=== PATIENT | female | born 1995 | race Caucasian/White ===

== ENCOUNTER 2017-03-13 00:29 | Inpatient (IN) | payer BC, OTHER ==
[~2017-03-13] VITALS: Ht 165.1 cm; Wt 104.3 kg
[2017-03-13] MEDS ORDERED: LORAZEPAM 2 MG/1 ML VIAL IM PRN (20:30)
[2017-03-13] MEDS ORDERED: LOPERAMIDE HCL 2 MG CAPSULE PO PRN ×2 (20:30)
[2017-03-13] MEDS ORDERED: MAGNESIUM HYDROXIDE 30 ML LIQUID UDC PO PRN (20:30)
[2017-03-13] MEDS ORDERED: CLONIDINE HCL 0.1 MG TABLET PO PRN (20:30)
[2017-03-13] MEDS ORDERED: diphenhydrAMINE 50 MG CAPSULE PO PRN (20:30)
[2017-03-13] MEDS ORDERED: MIRALAX 17 GM POWD.PACK PO PRN (20:30)
[2017-03-13] MEDS ORDERED: THIAMINE HCL 200 MG/2 ML VIAL IM ONE (20:30)
[2017-03-13] MEDS ORDERED: MAG HYDROX/AL HYDROX/SIMETH 30 ML LIQUID UDC PO PRN (20:30)
[2017-03-13] MEDS ORDERED: LORAZEPAM 1 MG TABLET PO PRN ×2 (20:30)
[2017-03-13] MEDS ORDERED: ACETAMINOPHEN 325 MG TABLET PO PRN (20:30)
[2017-03-13] MEDS ORDERED: ONDANSETRON 4 MG/2 ML VIAL IM PRN (20:30)
[2017-03-13 21:00] VITALS: BP 142/97
--- NOTE | 2017-03-13 21:00 | NUR ---
Preadmission note Patient is being admitted to [facility] for benzo detox, and K2 dependence. Patient is alert and oriented x 4. Appears anxious with restlessness, and hyperverbal speech pattern. Patient is nauseous and has vomited clear fluid x 2 during admission process. VS BP 142/97, P 112, Spo2 97% on RA, T 97.0 Patient ambulating with steady gait. Reports K2 use daily for 7 years and periodic intermittent xanax use approximately 3 times weekly. Patient last used today before getting on plane approximately 0900 this am. 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
[2017-03-13 21:14] VITALS: BP 142/90
--- NOTE | 2017-03-13 21:14 | NUR ---
Admission Note Patient is a 21 year old female admitted to [facility] on 03-13-17 at 2114 for K2 dependence and benzo detox. Patient is alert and oriented x 4. she is verbally responsive. She is able to make needs known. Patient has seasonal allergies. She is a full code and on a regular diet. Patient reports history of withdrawal seizures. Patient has family history of ETOH and substance use. Patient reports longest period of sobriety was for 6 months approximately 3 years ago. She had one past detox/rehabb 2 years ago at [facility] in [place]. Patient reports past medical history of anxiety, depression, asthma, vasculitis/dermatitis, pilondial cyst removal one month ago. Patient with multiple scars on lower and upper extremities. no open areas. She is 5'5" and 230 Lbs. Patient with nausea and vomiting during admission and preadmission. Provided urine for Hcg with negative result, and drug screen. Lab work drawn. Patient reports having a PCP in [place] Dr [place]. Patient reports taking Singulair 10 mg PO daily at home, and zofran 4 mg SL as needed. Oriented to unit, body search completed, VS BP 142/90, P 96, R 18, SPO2 97% on RA, T 98.6. CIWA 14. Patient on fall and seizure precautions, Safety measures in place, bed locked and in lowest position, 2 padded siderails up, call light within reach. Will continue to monitor. Substance abuse history 1. K-2 synthetic marijuana 4-10 gm daily inhalation. Using for 7 years. last use 03-13-17 at approximately 9 am 2. Xanax 1 mg approximately 3 times weekly Using for 7 years. last use 03-11-17 1 mg. (patient reports taking 1mg of ativan received from someone else prior to getting on plane today) 3. Cigarettes approximately 1ppd. last 7 years. Addendum: 03/14/17 at 0000 by ALLISON SARAVIA RN Patient also reports allergy to imitrex
[2017-03-13 21:25] LABS: BASOPHILS # (AUTO) 0.1 K/uL (0.0-8.0); BASOPHILS % (AUTO) 0.9 % (0.0-2.0); EOSINOPHILS # (AUTO) 0.2 K/uL (0.0-0.7); EOSINOPHILS % (AUTO) 1.9 % (0.0-7.0); HEMATOCRIT 43.5 % (37-47); HEMOGLOBIN 14.5 G/DL (12.0-16.0); LYMPHOCYTES # (AUTO) 2.8 K/UL (0.8-4.8); LYMPHOCYTES % (AUTO) 27.1 % (20.5-51.5); MEAN CORPUSCULAR HEMOGLOBIN 30.7 UUG (27.0-31.0); MEAN CORPUSCULAR HGB CONC 33 g/dL (32.0-37.0); MEAN CORPUSCULAR VOLUME 92.2 FL (81.0-99.0); MONOCYTES # (AUTO) 0.9 K/UL (0.1-1.30); NEUTROPHILS # (AUTO) 6.4 K/UL (1.8-8.9); NEUTROPHILS % (AUTO) 61.1 % (38.5-71.5); PLATELET COUNT (AUTO) 302 K/UL (150-450); RED BLOOD CELL COUNT(AUTO) 4.72 MIL/UL (4.2-5.4); WHITE BLOOD COUNT (AUTO) 10.4 K/UL (4.0-11.2)
[2017-03-13 21:39] LABS: ALANINE AMINOTRANSFERASE 22 U/L (14-59); ALKALINE PHOSPHATASE 96 U/L (50-136); ASPARTATE AMINOTRANSFERASE 12 U/L (15-37); BILIRUBIN,TOTAL 0.5 mg/dL (0.2-1.0); CARBON DIOXIDE 22 mmol/L (21-32); CHLORIDE 107 mmol/L (98-107); CREATININE 0.8 mg/dL (0.6-1.3); ETHANOL < 3 MG/DL (0-0); GLUCOSE 127 mg/dL (74-106); MAGNESIUM 1.8 mg/dL (1.8-2.4); POTASSIUM 3.6 mmol/L (3.5-5.1); UREA NITROGEN, BLOOD 12 mg/dL (7-18)
[2017-03-13 21:40] LABS: *URINE HCG, QUAL NEGATIVE (NEGATIVE)
[2017-03-13 21:52] LABS: *AMPHETAMINE, URINE NEGATIVE (NEGATIVE); *BARBITURATE, URINE NEGATIVE (NEGATIVE); *CANNABINOID, URINE NEGATIVE (NEGATIVE); *COCCAINE, URINE NEGATIVE (NEGATIVE); *OPIATE, URINE NEGATIVE (NEGATIVE); *PHENCYCLIDINE SCREEN,URINE NEGATIVE (NEGATIVE)
[2017-03-13] MEDS: ONDANSETRON ODT 4 MG TAB.RAPDIS SL PRN (22:12)
--- NOTE | 2017-03-13 22:12 | NUR ---
PRN medication Patient with nausea and vomiting x 5 since being in admission room at 1999. PRN Zofran 4mg SL given at 2211. Effect Pending.
[2017-03-13] MEDS ORDERED: ONDANSETRON ODT 4 MG TAB.RAPDIS ONE (22:20)
[2017-03-13] MEDS ORDERED: THIAMINE HCL 200 MG/2 ML VIAL ONE (22:20)
[2017-03-13] MEDS ORDERED: NICOTINE POLACRILEX 4 MG GUM-PK OF TEN BC PRN (22:45)
[2017-03-13] MEDS ORDERED: NICOTINE 14 MG/24HR PATCH TD PRN (22:45)
[2017-03-13] MEDS ORDERED: IV NS 1000 ML 1,000 ML IV PRN (22:45)
[2017-03-13] MEDS ORDERED: LORAZEPAM 2 MG/1 ML VIAL IV ONE (23:00)
--- NOTE | 2017-03-13 23:12 | NUR ---
Reassessment of Patient Patient reassessed one hour after Zofran 4mg SL administered for N/V. Patient with no further N/V. Zofran noted to have good effect.
[2017-03-13] MEDS ORDERED: MONT10TA22 PO (23:55)
[2017-03-13] MEDS ORDERED: ALPR1TAB7 PO (23:57)
[2017-03-13] MEDS ORDERED: ONDA4TAB8 SL (23:57)
[2017-03-14] VITALS: BP 136/86
[2017-03-14] MEDS ORDERED: LORAZEPAM 2 MG/1 ML VIAL ONE (00:29)
--- NOTE | 2017-03-14 00:30 | NUR ---
IV placement/one time dose IV ativan administration 22 g IV placed in right forearm. Flushes easily, good blood return. No reports of pain in site. Ativan 2mg IV push administered at 0044 for anxiety/agitation/induction of sleep/ CIWA 14. Effect pending Sodium Chloride 0.9% started at 0044, running at 125 ml/hr.
--- NOTE | 2017-03-14 01:39 | NUR ---
Reassessment of patient Patient reassessed one hour after IV Ativan 2mg given as one time dose. Patient resting comfortably in bed with eyes closed. BP 110/60, P 74, R 16, SPO2 98% on RA Ativan noted o have good effect
[2017-03-14 04:00] VITALS: BP 112/71
--- NOTE | 2017-03-14 06:57 | NUR ---
End of Shift Patient is a 21 year old female admitted to [facility] on 03-13-17 at 2114 for K2 dependence and benzo detox. Patient is alert and oriented x 4. Patient has allergy to pollen and Imitrex. She is a full code and on a regular diet. Patient reports history of withdrawal seizures. Patient reports past medical history of anxiety, depression, asthma, vasculitis /dermatitis, pilondial cyst removal one month ago. Patient with nausea and vomiting during admission and preadmission. Pt received PRN zofran 4mg SL with good effect. IV placement completed to right forearm at 0030. Patient was started on IV fluids at 0044. She received a one-time dose of Ativan 2 mg IV push at 0044. With good effect. Patient reports substance abuse history as follows: K-2 synthetic marijuana 4-10 gm daily inhalation. Using for 7 years. last use 03-13-17 at approximately 9 am Xanax 1 mg approximately 3 times weekly Using for 7 years. last use 03-11-17 1 mg. Cigarettes approximately 1ppd. last 7 years. VS at 2100 BP 142/97, P 112, SPO2 97% ON RA, T 97.0, R 16. VS AT 2114 BP 142/90, P 96, R 18, SPO2 97% on RA, T 98.6. CIWA 14. VS AT 0000 BP 136/86, P 84, R 16, SPO2 98% ON RA, T 98.6. CIWA 14. VS AT 0400 BP 112/71, P 62, R 16, SPO2 98% ON RA. CIWA DEFERRED. Intake 547 ml output 2 voids slept total of 7 hours. Patient on fall and seizure precautions, Safety measures in place, bed locked and in lowest position, 2 padded side-rails up, call light within reach. Will continue to monitor.
--- NOTE | 2017-03-14 07:50 | NUR ---
START OF SHIFT NOTE Received report from night nurse, 21 year old female admitted for K2 and benzo dependence. Patient has PMH of anxiety, depression, asthma, vasculitis /dermatitis, pilonidal cyst removal one month ago. Per endorsement Pt has IV site on RFA 22G Sodium Chloride 0.9% started at 0044, running at 125 ml/hr. Per endorsement pt received ID medications which was effective, pt slept for 5 hours. Patient received awake, alert and oriented x4, Educated patient regarding plan of care for the day and medication regimen with good verbal understanding. Safety measures in place. call light with in reach, will continue to monitor.
[2017-03-14 08:00] VITALS: BP 131/88
[2017-03-14] MEDS: MULTIVITAMINS,THERAPEUTIC TABLET PO SCH (08:25)
[2017-03-14] MEDS: ONDANSETRON ODT 4 MG TAB.RAPDIS SL PRN ×2 (08:26→18:32)
--- NOTE | 2017-03-14 08:26 | NUR ---
PRN ZOFRAN Pt c/o of nausea and x1 vomit, PRN Zofran 4 mg SL administered as ordered. Will cont to monitor and reassess.
[2017-03-14] MEDS ORDERED: FOLIC ACID 1 MG TABLET PO SCH (09:00)
[2017-03-14] MEDS ORDERED: TUBERCULIN,PURIF.PROT.DERIV. 5 TU/0.1 ML TEST ID ONE (09:00)
[2017-03-14] MEDS ORDERED: THIAMINE HCL 100 MG TABLET PO SCH (09:00)
[2017-03-14] MEDS ORDERED: PATIENT MAY USE OWN MED- MD OK PO SCH (09:00)
--- NOTE | 2017-03-14 09:06 | NUR ---
ZOFRAN REASSESSMENT Per pt Zofran was effective in improving nausea and vomiting.
--- NOTE | 2017-03-14 10:20 | NUR ---
IV DISCONTINUED Pt had saline lock on RFA was discontinued as ordered. IV site clean no s/s of bleeding no swelling noted. Pt is tolerating Po fluids and food well.
--- NOTE | 2017-03-14 10:59 | NUR ---
PRN IM ZOFRAN Pt was c/o of nausea and x1 emesis, Pt was given IM Zofran 2ml on left gluteal as ordered. Will cont to monitor and reassess.
--- NOTE | 2017-03-14 11:11 | NUR ---
PRN ATIVAN Pt was c/ of anxiety agitation, sweats, light headed, nausea, CIWA score noted 9. Administered PRN Ativan 1mg Po as ordered. Will cont to monitor and reassess.
--- NOTE | 2017-03-14 11:29 | NUR ---
PRN ZOFRAN REASSESSMENT Per pt Zofran IM was effective nausea and vomiting subside.
[2017-03-14 12:00] VITALS: BP 136/90
--- NOTE | 2017-03-14 12:11 | NUR ---
ATIVAN REASSESSMENT Per pt Ativan 1 mg was effective in alleviating withdrawal symptoms, CIWA score noted-4.
[2017-03-14] MEDS ORDERED: LORAZEPAM 1 MG TABLET PO ONE (13:00)
[2017-03-14] MEDS: GABAPENTIN 300 MG CAPSULE PO SCH ×2 (14:02→20:55)
[2017-03-14 16:00] VITALS: BP 135/93
--- NOTE | 2017-03-14 16:55 | NUR ---
Therapist prompted client to come into group today. Client agreed to attend group.
[2017-03-14] MEDS: MONTELUKAST SODIUM 10 MG TABLET PO SCH (17:39)
[2017-03-14] MEDS: IBUPROFEN 400 MG TABLET PO PRN (18:31)
--- NOTE | 2017-03-14 18:32 | NUR ---
PRN MOTRIN/CLONIDINE/ZOFRAN Patient was downstairs in cafeteria suddenly start c/o of nausea no emesis, general body aches 5/10, Patient was assisted back to her room by POWER TOOL REPAIR TECHNICIAN via wheel chair, Vital signs checked noted her blood pressure 142/92, HR-105. Patient was given PRN Motrin 400mg Po, Clonidine0.1mg Po, Zofran 4mg SL as ordered. Will cont to monitor and reassess.
--- NOTE | 2017-03-14 19:17 | NUR ---
END OF SHIFT NOTE Patient is alert oriented x4. 21 year old female admitted for K2,Benzo dependence. Patient has PMH of anxiety, depression, asthma, vasculitis /dermatitis, pilonidal cyst removal one month ago. Patient IV was removed during shift, Patient was given x3 PRN Zofran effective pt is resting in her room stated Zofran was effective nausea improved, and Ativan x1, noted to be effective. Vital signs remained WNL. Patient remained compliant with treatment plan and medication regime. Medications were effective in reducing withdrawal symptoms. All safety measures in place, Call light within reach. Patient endorsed to night nurse in stable condition.
--- NOTE | 2017-03-14 19:31 | NUR ---
START OF SHIFT NOTE RECEIVED REPORT FROM DAY SHIFT NURSE. PATIENT IS A 21 YEAR OLD MALE ADMITTED FOR BENZO/MARIJUANA DEPENDENCE. PATIENT IS NOT ON TAPER, UNDER OBSERVATION. PATIENT IS ALLERGIC TO IMITREX AND POLLEN. PATIENT WITH HISTORY OF W/D SEIZURES . PATIENT WAS GIVEN PRN ZOFRAN PO , ZOFRAN IM, CLONIDINE, MOTRIN AND ONE TIME ATIVAN. LAST CIWA 4. RECEIVED PATIENT IN HER ROOM, RESTING. PATIENT STATES MOTRIN AND CLONIDINE HELPFUL, DENIES ANY PAIN AT THIS TIME. PATIENT STATES SHE WANTS TO GO TO SLEEP BECAUSE SHE'S TIRED. BLOOD PRESSURE 127/74 P-88.ON FALL/SEIZURE PRECAUTION. SAFETY MEASURES IN PLACE. CALL LIGHT IN REACH. WILL CONTINUE TO MONITOR.
[2017-03-14 20:00] VITALS: BP 94/50
--- NOTE | 2017-03-15 | NUR ---
CIWA DEFERRED PATIENT SLEEPING. CIWA DEFERRED. VS REFUSED. RESPIRATION EVEN AND UNLABORED. SAFETY MEASURES IN PLACE. CALL LIGHT IN REACH. WILL CONTINUE TO MONITOR
--- NOTE | 2017-03-15 04:00 | NUR ---
CIWA DEFERRED PATIENT SLEEPING. CIWA DEFERRED. VS REFUSED. RESPIRATION EVEN AND UNLABORED. SAFETY MEASURES IN PLACE. CALL LIGHT IN REACH. WILL CONTINUE TO MONITOR
--- NOTE | 2017-03-15 07:07 | NUR ---
END OF SHIFT NOTE PATIENT IS A 21 YEAR OLD MALE ADMITTED FOR BENZO/MARIJUANA DEPENDENCE. PATIENT IS NOT ON TAPER, UNDER OBSERVATION. PATIENT IS ALLERGIC TO IMITREX AND POLLEN. PATIENT WITH HISTORY OF W/D SEIZURES . PATIENT IN HER ROOM MOST OF THE SHIFT. PATIENT DID NOT REQUIRE ANY PRN MEDICATION. PATIENT COMPLIANT WITH MEDICATION. ON FALL/SEIZURE PRECAUTION . SAFETY MEASURES IN PLACE. CALL LIGHT IN REACH. WILL CONTINUE TO MONITOR. SLEPT 10 HOURS. FLUID INTAKE 650 ML. VOIDED X 1. NO BM. LAST CIWA 3.
--- NOTE | 2017-03-15 07:55 | NUR ---
START OF SHIFT NOTE Received report from night nurse, 21 year old female admitted for K2 and benzo dependence. Patient has PMH of anxiety, depression, asthma, vasculitis /dermatitis, pilonidal cyst removal one month ago. Per endorsement Pt did not received any PRN medication, pt slept for 10 hours,Last CIWA was 3. Patient received awake, alert and oriented x4, Educated patient regarding plan of care for the day and medication regimen with good verbal understanding. Safety measures in place. call light with in reach, will continue to monitor.
[2017-03-15 08:00] VITALS: BP 113/65
--- NOTE | 2017-03-15 08:23 | NUR ---
YINA BOCANEGRA REASSESSMENT Per pt Yoana SHAH was effective nausea subside. Addendum: 03/15/17 at 1233 by SHRUTHI VAZQUEZ LVN error correct time for reassessment was 922.
[2017-03-15] MEDS: GABAPENTIN 300 MG CAPSULE PO SCH (08:53)
[2017-03-15] MEDS: MULTIVITAMINS,THERAPEUTIC TABLET PO SCH (08:53)
[2017-03-15] MEDS: ONDANSETRON ODT 4 MG TAB.RAPDIS SL PRN (08:53)
--- NOTE | 2017-03-15 08:53 | NUR ---
PRN ZOFRAN Pt c/o of nausea no emesis present, PRN Zofran 4 mg SL administered as ordered. Will cont to monitor and reassess.
[2017-03-15 11:07] LABS: HEPATITIS B SURFACE AG Negative (Negative)
[2017-03-15 12:00] VITALS: BP 116/71
[2017-03-15] MEDS ORDERED: METHOCARBAMOL 750 MG TABLET PO PRN (12:30)
--- NOTE | 2017-03-15 12:40 | NUR ---
PRN ROBAXIN/MIRALAX Patient was c/o of muscle aches and constipation, Patient was given PRN Robaxin 750 mg Po 1 tab, Miralax 1 pack as ordered. Will cont to monitor and reassess.
--- NOTE | 2017-03-15 13:40 | NUR ---
MIRALAX/ROBAXIN REASSESSMENT Per pt medications were effective in alleviating muscle cramps and constipation.
[2017-03-15] MEDS: DICYCLOMINE HCL 20 MG TABLET PO SCH ×2 (14:36→21:14)
[2017-03-15] MEDS: GABAPENTIN 400 MG CAPSULE PO SCH ×2 (14:36→21:13)
[2017-03-15] MEDS: DOCUSATE SODIUM 250 MG CAPSULE PO SCH (14:38)
[2017-03-15 16:00] VITALS: BP 124/67
[2017-03-15] MEDS: MONTELUKAST SODIUM 10 MG TABLET PO SCH (17:22)
--- NOTE | 2017-03-15 19:10 | NUR ---
END OF SHIFT NOTE Patient is alert oriented x4. 21 year old female admitted for K2,Benzo dependence. Patient has PMH of anxiety, depression, asthma, vasculitis /dermatitis, pilonidal cyst removal one month ago. Patient was given x1 PRN Zofran, Robaxin,Miralax noted to be effective. Patient refused her scheduled Colace per Patient Miralax was effective and had 3 BM. Vital signs remained WNL. Patient remained compliant with treatment plan and medication regime. Medications were effective in reducing withdrawal symptoms. Last CIWA score noted 3, at 1600. All safety measures in place, Call light within reach. Patient endorsed to night nurse in stable condition.
[2017-03-15 20:00] VITALS: BP 150/99
--- NOTE | 2017-03-15 20:00 | NUR ---
START OF SHIFT NOTE RECEIVED REPORT FROM DAY SHIFT NURSE. PATIENT IS A 21 YEAR OLD FEMALE ADMITTED FOR BENZO AND K-2 DEPENDENCE. PATIENT IS ALLERGIC TO IMITREX AND POLLEN. PATIENT REPORTS HISTORY OF W/D SEIZURES. PATIENT IS NOT ON TAPER, SHES UNDER OBSERVATION. PRN MEDICATION AVAILABLE. PATIENT WAS GIVEN PRN MIRALAX AND ZOFRAN X 1. PATIENT HAD X 3 BM. REFUSED ROUTINE COLACE. PATIENT LAST CIWA 3. RECEIVED PATIENT ALERT AND ORIENTED X 4. RESPIRATION EVEN AND UNLABORED. PATIENT ANXIOUS , FIDGETY, RESTLESS AND AGITATED. RELAXATION TECHNIQUE PROVIDED .ON FALL/SEIZURE PRECAUTION. SAFETY MEASURES IN PLACE. CALL LIGHT IN REACH. WILL CONTINUE TO MONITOR
[2017-03-15] MEDS: IBUPROFEN 400 MG TABLET PO PRN (21:13)
--- NOTE | 2017-03-15 21:13 | NUR ---
PRN MOTRIN ADMINISTRATION PATIENT C/O GENERALIZED BODY ACHES 10/07. PRN MOTRIN GIVEN. WILL MONITOR FOR EFFECTIVENESS
[2017-03-15] MEDS: CLONIDINE HCL 0.1 MG TABLET PO SCH (21:14)
--- NOTE | 2017-03-15 22:13 | NUR ---
PRN MOTRIN RE-ASSESSMENT PATIENT STATES MOTRIN IS HELPFUL. PAIN LEVEL IS 2/10 AT THIS TIME, TOLERABLE . WILL CONTINUE TO MONITOR
--- NOTE | 2017-03-15 22:17 | NUR ---
PRN BENADRYL ADMINISTRATION PATIENT REQUESTS FOR SLEEP AID. PRN BENADRYL GIVEN. WILL MONITOR FOR EFFECTIVENESS
[2017-03-16] VITALS: BP 136/77
--- NOTE | 2017-03-16 | NUR ---
CIWA DEFERRED PATIENT SLEEPING. CIWA DEFERRED. RESPIRATION EVEN AND UNLABORED. SAFETY MEASURES IN PLACE. CALL LIGHT IN REACH. WILL CONTINUE TO MONITOR.
[2017-03-16 04:00] VITALS: BP 106/67
--- NOTE | 2017-03-16 04:00 | NUR ---
CIWA DEFERRED PATIENT SLEEPING. CIWA DEFERRED. RESPIRATION EVEN AND UNLABORED. SAFETY MEASURES IN PLACE. CALL LIGHT IN REACH. WILL CONTINUE TO MONITOR.
--- NOTE | 2017-03-16 07:16 | NUR ---
END OF SHIFT NOTE PATIENT IS A 21 YEAR OLD FEMALE ADMITTED FOR BENZO AND K-2 DEPENDENCE. PATIENT IS ALLERGIC TO IMITREX AND POLLEN. PATIENT REPORTS HISTORY OF W/D SEIZURES. PATIENT IS NOT ON TAPER, SHES UNDER OBSERVATION. PRN MEDICATION AVAILABLE. PATIENT REMAIN ALERT AND ORIENTED X 4. RESPIRATION EVEN AND UNLABORED. PATIENT ANXIOUS , FIDGETY, RESTLESS AND AGITATED BEGINNING OF SHIFT. RELAXATION TECHNIQUE PROVIDED . PATIENT WAS GIVEN PRN MOTRIN FOR GENERALIZED BODY ACHES AND BENADRYL FOR SLEEP. ON FALL/SEIZURE PRECAUTION. SAFETY MEASURES IN PLACE. CALL LIGHT IN REACH. WILL CONTINUE TO MONITOR. SLEPT 6 HOURS. FLUID INTAKE 2,100 ML. VOIDED X 3. BM X 1 . LAST CIWA 5.
--- NOTE | 2017-03-16 07:42 | NUR ---
START OF SHIFT NOTE Received report from night nurse, 21 year old female admitted for K2 and benzo dependence. Patient has PMH of anxiety, depression, asthma, vasculitis /dermatitis, pilonidal cyst removal one month ago. Per endorsement Pt received PRN Motrin/Benadryl, pt slept for 5 hours,Last CIWA was 5. Patient received awake, alert and oriented x4, Educated patient regarding plan of care for the day and medication regimen with good verbal understanding. Safety measures in place. call light with in reach, will continue to monitor.
[2017-03-16 08:00] VITALS: BP 133/76
[2017-03-16] MEDS: MULTIVITAMINS,THERAPEUTIC TABLET PO SCH (08:06)
[2017-03-16] MEDS: DICYCLOMINE HCL 20 MG TABLET PO SCH ×3 (08:07→21:07)
[2017-03-16] MEDS: CLONIDINE HCL 0.1 MG TABLET PO SCH ×2 (08:07→21:07)
[2017-03-16] MEDS: GABAPENTIN 400 MG CAPSULE PO SCH ×3 (08:09→21:07)
[2017-03-16] MEDS: DOCUSATE SODIUM 250 MG CAPSULE PO SCH (08:09)
[2017-03-16 12:00] VITALS: BP 140/88
[2017-03-16] MEDS ORDERED: METH-406 PO (14:09)
[2017-03-16] MEDS ORDERED: DIPH50CA37 PO (14:09)
[2017-03-16] MEDS ORDERED: ONDA4TAB11 SL (14:09)
[2017-03-16] MEDS ORDERED: NICO4GUM38 BC (14:09)
[2017-03-16] MEDS ORDERED: GABA-536 PO (14:09)
[2017-03-16] MEDS ORDERED: CLON0.1T14 PO (14:09)
[2017-03-16] MEDS ORDERED: DICY20TA28 PO (14:09)
[2017-03-16] MEDS: NORMAL SALINE NASAL 45 ML BOTTLE NS PRN ×2 (14:21→21:08)
--- NOTE | 2017-03-16 14:21 | NUR ---
PRN OCEAN NASAL SPRAY Patient was c/o of allergic rhinitis, PRN [place] nasal spray was given as ordered. Will cont to monitor and reassess.
--- NOTE | 2017-03-16 14:41 | NUR ---
Therapist prompted client about group times. Client stated she would attend all groups today.
--- NOTE | 2017-03-16 15:21 | NUR ---
NASAL SPRAY REASSESSMENT Per patient nasal spray was effective and feeling relief from rhinitis.
[2017-03-16 16:00] VITALS: BP 120/86
[2017-03-16] MEDS: MONTELUKAST SODIUM 10 MG TABLET PO SCH (18:29)
--- NOTE | 2017-03-16 19:04 | NUR ---
END OF SHIFT NOTE Patient is alert oriented x4. 21 year old female admitted for K2,Benzo dependence. Patient has PMH of anxiety, depression, asthma, vasculitis /dermatitis, pilonidal cyst removal one month ago. Patient received PRN nasal spray Patient refused her scheduled Colace. Vital signs remained WNL. Patient remained compliant with treatment plan and medication regime. Last CIWA score noted 2, at 1600. Patient scheduled for discharge in AM. All safety measures in place, Call light within reach. Patient endorsed to night nurse in stable condition.
--- NOTE | 2017-03-16 19:15 | NUR ---
Start of Shift Note: Patient is a 21 y/o female admitted yesterday 03/13/17 for Benzo & K-2 dependence. Patient has PMH of anxiety, depression, asthma, vasculitis /dermatitis, pilonidal cyst removal one month ago. Hx of seizure d/t withdrawal. Patient is on a regular diet with allergies to Imitrex & Pollen. Full Code status. Patient is scheduled to be discharge tomorrow. Last CIWA is 2. Pt received PRN Nasal spray during day shift. Patient is alert & oriented x4. No shortness of breath noted. Respiration even & unlabored. Abdomen soft & non-distended. No nausea/vomiting noted. Patient denies pain/discomfort. Patient complains of mild anxiety. No hand tremors noted. Patient denies any hallucinations. Safety precautions are in place. Bed locked in lowest position. Both side rails up. Call light within pts reach. Will continue to monitor patient.
[2017-03-16 20:00] VITALS: BP 139/89
[2017-03-17] VITALS: BP 139/91
--- NOTE | 2017-03-17 07:08 | NUR ---
End of Shift Note: Patient had an uneventful night. Pt completed her taper and she is scheduled to be discharge today. Last COWS 3. Patient received PRN Nasal spray allergic rhinitis and was effective. Patient remained compliant with medications and treatment. Patient remains stable and vitals remains WNL. Pt slept for a total of 7 hours. Pt consumed 1535 ml of fluids. Pt voided 3x with no bowel movement. All needs attended & met. Safety measures in place. Will endorse pt to day shift nurse.
--- NOTE | 2017-03-17 07:47 | NUR ---
BEGINNING OF SHIFT Patient endorsement report received from evening or night nurse supervisor nurse, all pertinent information discussed. Patient is a 21 year old female admitted on: 03/13/2017 with admitting Dx: /BZO dependence, And substance use of: k2. Patient currently under close observation, completed ativan taper as ordered and is scheduled to be discharged this morning, noted self motivated towards sobriety. Per evening or night nurse supervisor patient slept for 7 hours, received PRN: Nasal spray as ordered. Patient with last ciwa score of: 3 Patient received awake, alert and oriented x4, patient educated regarding plan of care and medication regimen for the day with good verbal understanding. Safety measure sin place. call light kept with in reach, will continue to monitor.
[2017-03-17 08:09] VITALS: BP 139/80
[2017-03-17 08:25] VITALS: BP 139/80
[2017-03-17] MEDS: GABAPENTIN 400 MG CAPSULE PO SCH (08:25)
[2017-03-17] MEDS: MULTIVITAMINS,THERAPEUTIC TABLET PO SCH (08:25)
[2017-03-17] MEDS: DICYCLOMINE HCL 20 MG TABLET PO SCH (08:25)
[2017-03-17] MEDS: CLONIDINE HCL 0.1 MG TABLET PO SCH (08:25)
--- NOTE | 2017-03-17 09:24 | NUR ---
DISCHARGE Patient discharged at 0924 prior to discharge patient was educated regarding all discharge instructions with good verbal understanding. Patients vital signs WNL. Patient with no s/sx of withdrawal. Patient discharged to able to change, in stable condition. noted self motivated towards sobriety. patient with last ciwa score of: 0. patients home medications, prescriptions and signed discharge instructions were placed in patients personal duffel bag. patient off the unit at 0924.
== END 2017-03-17 09:24 | disposition other institution (70) | DRG 895 ==
LOC: SRC 20:15
PROVIDERS: ADMIT Internal Medicine; ATTEND Internal Medicine
PROC: HZ2ZZZZ Detoxification Services for Substance Abuse Treatment (ICD-10-PCS; principal; 2017-03-13)
PROC: HZ41ZZZ Group Counseling for Substance Abuse Treatment, Behavioral (ICD-10-PCS; 2017-03-14)
PROC: HZ31ZZZ Individual Counseling for Substance Abuse Treatment, Behavioral (ICD-10-PCS; 2017-03-16)
DX: F12.288 Cannabis dependence with other cannabis-induced disorder (principal); F13.230 Sedative, hypnotic or anxiolytic dependence with withdrawal, uncomplicated; F32.2 Major depressive disorder, single episode, severe without psychotic features; E66.9 Obesity, unspecified; Z91.89 Other specified personal risk factors, not elsewhere classified; Z68.38 Body mass index [BMI] 38.0-38.9, adult; F17.210 Nicotine dependence, cigarettes, uncomplicated; F41.9 Anxiety disorder, unspecified; R11.2 Nausea with vomiting, unspecified; R73.9 Hyperglycemia, unspecified; L95.9 Vasculitis limited to the skin, unspecified; J45.20 Mild intermittent asthma, uncomplicated; Z81.1 Family history of alcohol abuse and dependence; Z81.8 Family history of other mental and behavioral disorders
CPT/HCPCS: 36415; 70030-TC; 80307; 83735; 84703; 85025; 86580; 86592; 86705; 86803; 87340; 87806; G0480; J2060; J2405; J3411; J7030; Q0162; Q0163